=== PATIENT | male | born 1970 | race Caucasian/White ===

== ENCOUNTER 2023-12-05 19:49 | Inpatient (IN) | payer OTHER, SELFPAY ==
[2023-12-05] VITALS (10 sets, daily range): BP systolic 102–123; BP diastolic 70–86
[2023-12-05 19:38] LABS: % Basophils 0.3 % (0-2); % Eosinophils 1.8 % (0-6); % Immature Granulocytes 0.2 % (0-0.5); % Lymphocytes 26.8 % (20.5-51.1); % Monocytes 5.7 % (1.7-9.3); % Neutrophils 65.2 % (42.2-75.2); Absolute Eosinophils 0.2 10^3/uL (0-0.7); Absolute Lymphocytes 3.4 10^3/uL (1.2-3.4); Absolute Monocytes 0.7 10^3/uL (0.1-0.6); Absolute Neutrophils 8.2 10^3/uL (1.4-6.5); Hematocrit 39.2 % (39.0-52.0); Hemoglobin 13.9 g/dL (13.0-18.0); Mean Corp Hgb Conc. 35.5 g/dL (33.0-37.0); Mean Corpuscular Hgb 30.4 pg (27.0-31.0); Mean Corpuscular Volume 85.8 fL (80.0-94.0); Mean Platelet Volume 9.9 fL (7.4-10.4); Nucleated Red Blood Cells % 0 % (-); Platelet Count 314 10^3/uL (130-400); Red Blood Cell Count 4.57 10^6/uL (4.70-6.10); Red Cell Dist. Width 12.6 % (11.5-14.5); White Blood Cell Count 12.6 10^3/uL (4.8-10.8)
--- NOTE | 2023-12-05 19:43 | HPS.HSE ---
Family Physician
-
Family Physician: Stanley Arriola
Chief Complaint
-
Chest Pain.
History of Present Illness
53 y/o male with hyperlipidemia and CAD s/p prior ME in 2019 with PCI now presenting with 30 minutes of substernal chest pain. EKG in the field showed ST elevation ME. On arrival the patient was given nitroglycerin SL with a small drop in BP. IV
fluids were given. The labor relations analyst was activated. At the time of interview, his pain is 8/10. Nitro gtt is being hung. He recalls undergoing the PCI, but is unsure of where the stent was placed.
Medical History
Past Medical History
Past Medical History: Reports CAD (Prior ME and PCI at [facility] - 2019.) and Hypercholesterolemia
Past Surgical History: Reports None
Social History
Tobacco: Non-smoker
Alcohol: Occasional
Drug: None
Family History
Family History: Not pertinent
Allergies / Home Medications
Allergies reflects when Allergies were last updated in [facility] ?.
Home Medications with original date entered in [facility] ?
Allergy/Medication List:
Home Medications:
Atorvastatin.
Metoprolol.
Lisinopril.
Aspirin.
Allergies:
NKDA.
Review of Systems
-
History Source: Patient
A 12 point ROS was completed and negative except as noted: Yes
Cardiac: Reports See HPI and Chest Pain
Physical Exam
Physical Exam
General: Well Developed, Well Nourished, Appears in Distress and Pain
HEENT: NormoCephalic, Anicteric, Moist mucous membranes, Atraumatic, Good Dentition, PERRLA, No Ptosis, Nose Appears Normal and Ears Appear Normal
Respiratory: Clear
Cardiac: S1/S2 and Regular Rhythm
Breast: Deferred by me
GI: Soft, Non Tender, Non Distended and Normal Bowel Sounds
Rectal: Deferred by Provider
Genito-urinary: Deferred by me
Musculoskeletal: No Clubbing, No Cyanosis and No Edema
Skin: Warm and Dry
Neuro: AO x 3, No Motor Deficits and Nonfocal/grossly intact
Hematologic/Lymphatic: No Lymphadenopathy
Psych: Calm and Intact Judgment/Insight
Laboratory Results
-
12/05/23 19:30
Data Reviewed
-
Medical Tests (Nuc Med, Echo, EKG etc): Image Personally Visualized and interpreted and Report Reviewed by me
Lab Data: Labs Reviewed by me
Impression/Plan
-
Impression/Plan: 53 y/o male with HLD and CAD s/p prior PCI for ME in 2019 now presenting with STEMI.
#CAD/STEMI
-Acute.
-Urgent cardiac catheterization for clarification of anatomy with ad hoc PCI.
-Consent is signed and on the chart.
-Further instructions will follow.
Critical Care Time = 30 minutes.
[2023-12-05 19:49] LABS: INR 1.07; PT 13.9 Sec (11.4-14.6)
[2023-12-05 19:50] LABS: ALT (SGPT) 30 U/L (0-50); AST (SGOT) 26 U/L (17-59); Albumin 4.1 g/dl (3.5-5.0); Alkaline Phosphatase 91 U/L (38-126); Blood Urea Nitrogen 21 mg/dl (9-20); Calcium 9.5 mg/dl (8.4-10.2); Carbon Dioxide 29 mmol/L (22-30); Chloride 101 mmol/L (98-107); Glucose 115 mg/dl (70-99); Potassium 3.7 mmol/L (3.5-5.1); Sodium 140 mmol/L (135-145); Total Bilirubin 0.5 mg/dl (0.2-1.3); Total Protein 6.6 g/dl (6.3-8.2); eGFR > 60.00
--- NOTE | 2023-12-05 19:50 | ED.GENMED ---
History of Present Illness
General
Chief Complaint: Cardiac Symptoms
Source: patient and ambulance crew
Exam Limitations: none
Time Seen by Provider: 12/05/23 19:32
Nursing documentation reviewed up to this point in time: agreed with
History of Present Illness
History of Present Illness:
Late entry seen immediately upon presentation
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
is Dr. Hussein at [facility] cardiology
Past History
Past History
ED Past Medical History: CAD, HTN and Hypercholesterolemia
ED Past Surgical History: Cardiac (Stent)
Social History
Tobacco: Non-smoker
Alcohol: None
Drug: None
Personal:
Living: with family
Employment: Employed
Family History
Family History: CAD
Review of Systems
Review of Systems
All Other Systems: Not applicable
Cardiac: Reports chest pain and diaphoresis
Phy Exam
Physical Exam
Physical Exam:
Physical Exam
General: Ill-appearing male
Neck: No joint
Heart: s1/s2 regular rate and rhythm, no murmur. equal radial pulses.
Lungs: no acute respiratory distress. clear bilaterally
Abdomen: Not
Neuro: alert and oriented. no focal neurological deficits
Skin: no rash
Psychiatric: well kept. interactive and cooperative
Extremities: no edema. Strong radial
Scores
Heart Score for Chest Pain Patients
STEMI patient?: Yes
Course
Orders/Labs/Results
Orders:
Orders
12/05/23 19:25
Electrocardiogram (*1) Urgent
Reason for Study: Chest Pain
Cardiac Monitoring- Treatment ONCE
EKG- Treatment ONCE
IV Insert/Care/Rem.- Treatment PRN
O2 Therapy [RESP] Urgent
Titrate/Wean O2 to maintain O2 sat greater than (%): 90
Special Instructions: Maintain sats >/=90%
Pulse Ox/spot Check [RESP] Urgent
Quantity: 1
Special Instructions: ON ROOM AIR
12/05/23 19:30
Complete Blood Count/With Diff Urgent
Comprehensive Metabolic Panel Urgent
PTT Routine
Troponin I Urgent
12/05/23 19:31
PT/INR [Prothrombin Time] Urgent
12/05/23 19:32
Morphine Sulfate 4 mg .ROUTE .STK-MED ONE
12/05/23 19:35
Nitroglycerin 100 mg/250 ml [Nitroglycerin Premix] 100 mg in 250 ml .ROUTE .STK-MED
12/05/23 19:43
Midazolam HCl [Versed] 2 mg .ROUTE .STK-MED ONE
Verapamil Injectable [Isoptin/Verapamil Injection] 5 mg .ROUTE .STK-MED ONE
12/05/23 19:44
Fentanyl Citrate/Pf [Sublimaze] 100 mcg .ROUTE .STK-MED ONE
Heparin 1000 Units/500 ml [Heparin] 1,000 units in 500 ml .ROUTE .STK-MED
Heparin Sodium,Porcine/Ns/Pf [Heparin 2000 Units/1000 ml] 2,000 unit in 1,000 ml .ROUTE .STK-MED
Lidocaine HCl/Pf [Xylocaine-Mpf 1% Vial] 100 mg .ROUTE .STK-MED ONE
Nitroglycerin [Tridil] 1,500 mcg .ROUTE .STK-MED ONE
Abnormal Lab Results
12/05/23
19:30
WBC 12.6 H 10^3/uL
(4.8-10.8)
RBC 4.57 L 10^6/uL
(4.70-6.10)
Absolute Neuts (auto) 8.2 H 10^3/uL
(1.4-6.5)
Absolute Monos (auto) 0.7 H 10^3/uL
(0.1-0.6)
BUN 21 H mg/dl
(9-20)
Glucose 115 H mg/dl
(70-99)
12/05/23 19:30
12/05/23 19:30
MDM/Problems Addressed
Differential Diagnosis Includes:
STEMI, LV aneurysm, pericarditis
MDM/Problems Addressed:
Chest pain
Chronic conditions affecting care: CAD
Acute Exacerbation and/or Progression of Chronic Illness: CAD
*Pulse Oximetry
Patient hypoxic: no
*EKG
Interpreted by ED Provider?: Yes
Interpretation: abnormal
Comparison EKG: no comparison EKG present
Heart Rate: 58
Rate: bradycardiac
Rhythm: sinus
Ischemia: ST elevation
*Printing Estimator Interpretation
Rate: bradycardiac
Interpretation: normal
Heart Rate: 58
Rhythm: sinus
*Critical Care Note
Total Time (30-74mins, 75-104mins- exclusive of procedures): 30
Update Note
Update Note:
CRITICAL CARE STATEMENT: A total of 30 minutes of critical care time was provided for this patient. This includes management of unstable vital signs, evaluation of the patient at bedside, reviewing the patient's pertinent medical records discussion
with EMS providers and patient's family in addition to discussion with consultants, review of old EKGs and review of pertinent medical records. This time with separate from time utilized to perform the aforementioned documented procedures
ED Attending Note
-
Portions of this chart may have been created with voice recognition software.� Occasional wrong word or��sound alike� substitutions may have occurred due to the inherent limitations of voice recognition software.
Discharge Plan
Departure
Patient Disposition: Admit
Date of Disposition: 12/05/23
Time of Disposition: 19:52
Admit to: labor union business representative
Admit to doctor: eric rossi
Presentation/result/management discussed w/ accepting MD/DO: cardilogy ERICA Rose
Patient with high blood pressure during this ER visit?: No
Condition: Serious
Covid-19: Not Applicable
Discharge Problem:
Myocardial infarction acute
Prescriptions:
No Action
atorvastatin 80 mg tablet
80 mg PO DAILY
aspirin 81 mg Tablet,Delayed Release (Dr/Ec)
81 mg PO DAILY
metoprolol succinate 25 mg tablet extended release 24 hr
12.5 mg PO DAILY
lisinopril 2.5 mg tablet
2.5 mg PO DAILY
Referrals:
Stanley Arriola MD [Family Provider] -
[2023-12-05 20:02] LABS: Troponin I < 0.012 ng/ml
[2023-12-05 20:16] LABS: APTT 24.4 Sec (23.4-35.0)
[2023-12-05] MEDS: INTEGRILIN 100 IV (20:18)
[2023-12-05 20:39] LABS: ACT-LR - POC 221 Seconds (116-155)
--- NOTE | 2023-12-05 20:45 | ITS.CL.ANGIO ---
Surgical Instrument Repair Specialist - Angioplasty
Angioplasty
Procedure Report:
CARDIAC CATHETERIZATION REPORT
Date of Procedure: 12/05/2023
Referring: Bowen Umaña D.O.
INDICATION: Anterior ST elevation myocardial infarction.
PROCEDURE:
1. Left heart catheterization
2. Coronary angiography.
3. Success balloon angioplasty of the occluded proximal LAD.
4. Aspiration thrombectomy of embolized thrombus to the distal LAD.
5. Successful PCI of the proximal LAD.
6. Intravascular ultrasound.
ACCESS:
6 [place] right radial artery.
CATHETERS:
1. 5 [place] JR4.
2. 5 [place] JL 3.5.
3. 6 [place] EBU 3.5 guiding catheter.
HEMODYNAMIC DATA
Weight (kg): 77.1.
AO (s/d/x, mmHg): 118/79/92
LV (s/x mmHg): 121/20 (A wave to 35)
LEFT VENTRICULOGRAPHY: Not performed.
CORONARY ANGIOGRAPHY
Dominance: Right.
Left Main: Normal size, bifurcating vessel. There is no coronary artery disease.
LAD: Normal size vessel giving rise to several small diagonals. A stent is present in the mid vessel, spanning the origin of one of the diagonals. The proximal vessel is acutely occluded.
Ramus: Congenitally absent.
Circumflex: Large size, nondominant vessel that is essentially a single large obtuse marginal. There is a 10-20% lesion in the proximal vessel.
RCA: Large size, dominant vessel. There are luminal irregularities in the proximal vessel.
INTERVENTION(S)
1. Successful balloon angioplasty of the acute proximal LAD occlusion (2.0 x 12 semicompliant balloon) with yazidi of RADHA-3 flow and embolization of the culprit thrombus to the distal LAD.
2. Successful aspiration thrombectomy of the distal LAD (KG catheter) with removal of moderate thrombus burden and yazidi of RADHA-3 flow throughout the entire distal LAD.
3. Successful IVUS guided PCI of the proximal and proximal LAD plaque (Xience Skypoint 3.5 x 28 CAIO, postdilated with a 3.5 NC balloon) with reduction in stenosis to 0%, maintaining RADHA-3 flow.
Narrative:
The decision was made to proceed with percutaneous coronary intervention. The diagnostic catheter was removed over a wire and a 6Fr EBU 3.5 guiding catheter was advanced to the aortic root and seated in the left main coronary artery. Additional
heparin was given and a Power Turn Flex wire was advanced into the distal LAD. The acute, thrombotic proximal LAD lesion was predilated with a 2.0 x 12 semi-compliant balloon to 12 emily. Subsequent angiography revealed yazidi of RADHA-3 flow
through the majority the artery but occlusion of the distal vessel consistent with embolization of the thrombus. Eptifibatide was given as a double bolus and drip.
The decision was made to perform aspiration thrombectomy. The semi-compliant balloon was removed. An KG catheter was prepped on the back table and set to negative pressure. With reperfusion, the patient had several runs of nonsustained
ventricular tachycardia, asymptomatic. The patient was bolused with amiodarone 150 mg daily. The KG catheter was advanced over the power turn flex wire and stopcock turned to suction once entering the proximal LAD. The catheter was advanced all
the way into the distal LAD where flow was noted to stop, suggesting that thrombus had been pulled into the catheter. The KG catheter was removed from the body, remaining on negative pressure throughout the entire time. The contents of the
syringe and catheter were flushed through a basket, revealing a moderate sized thrombus. Repeat angiography demonstrated yazidi of RADHA-3 flow into the distal LAD.
We then turned our attention back to the proximal LAD plaque rupture. A Xience Skypoint 3.5 x 28 drug-eluting stent was advanced. Meticulous care was taken while positioning the stent. The distal aspect of the stent was covering the lesion and in
fact overlapped with the previously placed stent. The proximal margin of the stent covered the proximal lesion but did not intrude into the left main coronary artery. The stent was deployed at 12 atmospheres. The stent balloon was removed.
The decision was made to perform intracoronary imaging. An IVUS catheter was advanced through the guiding catheter and into the ostium of the artery. Ring down was performed once the imaging crystal was no longer inside of the guiding catheter. The
IVUS catheter was advanced into the mid LAD, beyond the entire stented segment including the previously placed stent. Intravascular ultrasound was performed in a retrograde fashion using a slow pullback. Intracoronary imaging demonstrated good stent
apposition of the mid LAD stent. This also demonstrated good apposition of the proximal LAD stent in the mid and distal portions with mild mall apposition of the proximal portion and mild underexpansion of the mid and distal stented segments. The
IVUS catheter was withdrawn.
A 3.5 x 20 noncompliant balloon was advanced into the stent and the mid and distal stent was postdilated to 12 atmospheres. The proximal stent was postdilated to 16 emily. Angiography was performed in orthogonal views, confirming good stent
expansion and an excellent angiographic result. The coronary wire was withdrawn and the guide was disengaged from the artery. The catheter was removed over a standard J-wire.
Closure Device: Vascular band.
Radiation (mGy): 523.60
DAP (cm2.Gy): 30.6605
Fluoroscopy time (minutes): 8.5
Sedation time (minutes): 38
CONCLUSIONS
1. Right dominant circulation with luminal irregularities in the proximal RCA, a 10-20% lesion in the proximal circumflex, a prior stent in the mid LAD and an acutely occluded proximal LAD, status post successful balloon angioplasty complicated by
thrombus embolization to the distal LAD requiring aspiration thrombectomy followed by successful IVUS guided PCI of the proximal LAD plaque (Xience Skypoint 3.5 x 28 CAIO, postdilated with a 3.5 NC balloon) with reduction in stenosis to 0%, restoring
RADHA-3 flow.
2. Moderately elevated filling pressures (LVEDP = 20 mmHg at 77.1 kg) with evidence of diastolic dysfunction (A wave to 35 mmHg).
RECOMMENDATIONS:
1. Expectant management after cardiac catheterization via right radial approach.
2. Limited weight bearing on the right wrist for one week.
3. Dual antiplatelet therapy with aspirin and ticagrelor for at least 12 months, followed by aspirin indefinitely. The patient may be on long-term dual antiplatelet therapy.
4. Aggressive secondary prevention and treatment of risk factors.
5. Trend troponin to peak.
6. Echocardiogram ordered and pending.
7. Referral to cardiac rehab.
Copy to: Stanley Arriola M.D.
Eric Rose DO, FACC, FACP
[2023-12-05] MEDS: NSS 1000 IV (21:00)
[2023-12-05 22:16] LABS: Troponin I 0.361 ng/ml
[2023-12-06] VITALS (7 sets, daily range): BP systolic 103–115; BP diastolic 60–82; BMI 23.6
--- NOTE | 2023-12-06 01:05 | PTCARENOTE ---
Received patient from microbiology lab analyst at approx 20:50 into room 2245. Patient AAOx3, sating 95-98% RA, and VSS. Patient denies any chest pain or discomfort. Tele monitor applied--pt SR/sinus jeanna. HR in the 50-70's. At approx 22:35 patient developed a
hematoma proximal to the TR band. Patient was aware of the activity restrictions, and denied putting any pressure on site. Manual pressure held by RN for 10 mins. Site soft upon palpation. TR band removed at 00:15 per protocol, dry dressing
applied. Right radial site remains soft upon palpation, and some ecchymosis noted. Arslan SHAW made aware of hematoma, and assessed site. No new orders obtained. Right radial pulse positive, and denies any numbness at this time. Patient
ambulated w/ standby assist to BR and denies any dizziness. Gait steady. Integrilin infusing at 12.8ml/hr. Patient and aware of POC. Education packets provided. Call cardenas within reach.
[2023-12-06] MEDS: INTEGRILIN 100 IV ×2 (02:02→09:16)
[2023-12-06 04:42] LABS: Hematocrit 35.4 % (39.0-52.0); Hemoglobin 12.5 g/dL (13.0-18.0); Mean Corp Hgb Conc. 35.3 g/dL (33.0-37.0); Mean Corpuscular Hgb 30.1 pg (27.0-31.0); Mean Corpuscular Volume 85.3 fL (80.0-94.0); Mean Platelet Volume 10.3 fL (7.4-10.4); Platelet Count 260 10^3/uL (130-400); Red Blood Cell Count 4.15 10^6/uL (4.70-6.10); Red Cell Dist. Width 12.7 % (11.5-14.5)
[2023-12-06 05:07] LABS: Blood Urea Nitrogen 18 mg/dl (9-20); Carbon Dioxide 25 mmol/L (22-30); Chloride 102 mmol/L (98-107); Estimated Creatinine Clearance 112 ml/min; Glucose 109 mg/dl (70-99); Magnesium 1.9 mg/dl (1.6-2.3); Potassium 3.8 mmol/L (3.5-5.1); Sodium 136 mmol/L (135-145); eGFR > 60.00
--- NOTE | 2023-12-06 07:29 | W.PN.CD ---
Today's Communication / Plan
-
Routine post PCI management.
Trend troponin to peak.
Echocardiogram pending.
Lipid panel pending.
Cardiac Rehab referral.
Impression / Plan
-
Impression/Plan: 53 y/o male with HLD and prior anterior STEMI with PCI to the mLAD (, 2018) admitted with recurrent anterior STEMI s/p IVUS guided PCI to the pLAD.
#CAD/STEMI
-Acute.
-Troponin up to 5.95.
-S/P IVUS guided PCI to the proximal LAD (Xience Skypoint 3.5 x 28 CAIO, post dilated with a 3.5 NCB), overlapping with the mLAD stent.
-Initial angioplasty complicated by thrombus embolizing to the distal LAD, s/p successful aspiration thrombectomy.
-DAPT with ASA and ticagrelor.
-Continue home metoprolol 12.5 mg daily.
-High dose, high potency statin.
-Repeat lipid panel.
-Echocardiogram ordered and pending.
#HLD
-Chronic.
-Lipid panel pending.
-Goal LDL < 55. Probably actually lower.
#PPx
-SCD's for DVT/VTE.
-No role for PPI.
#Dispo
-IVU status.
-Full Code.
Subjective/Interval History:
Anterior STEMI yesterday.
Successful PCI.
Small right radial hematoma overnight.
DATA:
Cardiac Catheterization, 12/05/2023:
CONCLUSIONS
1.� Right dominant circulation with luminal irregularities in the proximal RCA, a 10-20% lesion in the proximal circumflex, a prior stent in the mid LAD and an acutely occluded proximal LAD, status post successful balloon angioplasty complicated by
thrombus embolization to the distal LAD requiring aspiration thrombectomy followed by successful IVUS guided PCI of the proximal LAD plaque (Xience Skypoint 3.5 x 28 CAIO, postdilated with a 3.5 NC balloon) with reduction in stenosis to 0%, restoring
RADHA-3 flow.
2.� Moderately elevated filling pressures (LVEDP = 20 mmHg at 77.1 kg) with evidence of diastolic dysfunction (A wave to 35 mmHg).
Physical Exam
Vital Signs/Labs
Vital Signs
Temp Pulse Resp BP Pulse Ox
36.7 C 58 20 106/66 94
12/06/23 07:06 12/06/23 05:00 12/06/23 07:06 12/06/23 03:57 12/06/23 07:06
12/04/23 12/05/23 12/06/23
11:59 11:59 11:59
Actual Weight 76.8 kg
12/06/23 04:11
12/06/23 04:11
PT 13.9 Sec (11.4-14.6) 12/05/23 19:31
INR 1.07 12/05/23 19:31
APTT 24.4 Sec (23.4-35.0) 12/05/23 19:31
Magnesium 1.9 mg/dl (1.6-2.3) 12/06/23 04:11
LAB Results
12/05/23 12/05/23 12/06/23
19:30 21:45 04:11
Troponin I < 0.012 0.361 H* D 5.950 H* D
Physical Exam
Constitutional: No acute distress and Comfortable
EENT: Anicteric and Moist mucous membranes
Cardiovascular: Rhythm & rate is regular, Pedal edema is absent, JVD pressure is normal, S1S2 is normal and Murmur/rub/gallop absent
Respiratory: Respiratory effort normal, Lungs clear to auscul., Wheeze Absent, Crackles Absent and Rhonchi Absent
GI: Soft, Distention absent, Flat, Non tender and Normal bowel sounds
Neuro/Psych: AO x 3
Other: Cath Site (Right radial access site is C/D/I.)
Data Reviewed
-
Date of Service: December 06, 2023
Medical Decision Making: External Notes, Reviewed Test Results, Tests Ordered, Independent Historian Assessment and Test Interpretation
EKG: Tracing Personally Visualized and interpreted and Report Reviewed by me
Medical Tests (PFT, Pathology etc): Image Personally Visualized and interpreted and Report Reviewed by me
Labs: Labs Reviewed by me and Labs Ordered by me
Old Records: Reviewed
[2023-12-06 08:19] LABS: HDL Cholesterol 34 mg/dl; LDL Cholesterol, Calculated 57 mg/dl; Total Cholesterol 113 mg/dl (50-199); Triglyceride 112 mg/dl (10-149); Very Low Density Lipoprotein 22 mg/dl (0-30)
[2023-12-06] MEDS: LOW STRENGTH ASPIRIN 81 MG PO (09:25)
[2023-12-06] MEDS: TOPROL XL 12.5 MG PO (09:26)
[2023-12-06] MEDS: BRILINTA 90 MG PO ×2 (09:26→19:49)
[2023-12-06] MEDS: LIPITOR 80 MG PO (09:26)
--- NOTE | 2023-12-06 10:42 | CM ---
Chart reviewed. Patient is independent of ADLS, lives with his in a [address], 2 [address], 0 DME. Plan is for the patient to return home. CM to follow
--- NOTE | 2023-12-06 10:43 | CM ---
Pricing on Brilinta through the patient's [employer] prescription plan is $133.86 a month. The patient qualifies for the $5 copay card. Patient's pharmacy does not have Brilinta in stock and it will take 24 hours. Gilma Yang to call in the
prescription. Patient educated on copay card.
[2023-12-06] MEDS: LOVENOX 40 MG SC (18:25)
--- NOTE | 2023-12-06 23:08 | PTCARENOTE ---
patient resting in bed comfortably at this time. denies any cp/sob. educated patient to inform RN with any changes. SR on tele 60s-70s. bp stable. removed dressing from R radial cath site-FUR FINISHER, ecchymotic; + radial pulse. educated patient to inform
RN with any changes.
[2023-12-07] VITALS (8 sets, daily range): BP systolic 108–139; BP diastolic 75–92; BMI 23.1
[2023-12-07 05:03] LABS: Blood Urea Nitrogen 11 mg/dl (9-20); Calcium 9.1 mg/dl (8.4-10.2); Carbon Dioxide 25 mmol/L (22-30); Chloride 107 mmol/L (98-107); Estimated Creatinine Clearance 112 ml/min; Glucose 93 mg/dl (70-99); Potassium 4.3 mmol/L (3.5-5.1); Sodium 136 mmol/L (135-145); eGFR > 60.00
[2023-12-07] MEDS: LOW STRENGTH ASPIRIN 81 MG PO (08:40)
[2023-12-07] MEDS: BRILINTA 90 MG PO ×2 (08:40→19:45)
[2023-12-07] MEDS: LIPITOR 80 MG PO (08:40)
[2023-12-07] MEDS: TOPROL XL 12.5 MG PO ×2 (08:40→09:25)
--- NOTE | 2023-12-07 09:08 | W.PN.CD ---
Today's Communication / Plan
-
monitor tele
change atorvastatin to rosuvastatin
change lisinopril to entresto
increase ToproL XL to 25mg daily
continue DAPT
Impression / Plan
-
Impression/Plan: 53 y/o male with HLD and prior anterior STEMI with PCI to the mLAD (2018) admitted with recurrent anterior STEMI s/p IVUS guided PCI to the pLAD.
#CAD/STEMI
-Acute.
-Troponin peak 7
-s/p IVUS guided PCI to the proximal LAD (Xience Skypoint 3.5 x 28 CAIO, post dilated with a 3.5 NCB), overlapping with the mLAD stent. on 12/04
-Initial angioplasty complicated by thrombus embolizing to the distal LAD, s/p successful aspiration thrombectomy.
-DAPT with ASA and ticagrelor.
# ICM EF 40-45%
-increase Toprol XL to 25mg daily
-change lisinopril to entresto 24/26mg bid
#HLD
-LDL 57
-Goal LDL < 55. Change atorvastatin to rosuvastatin 40mg daily
# NSVT
-brief on day one post OR
-increase Toprol XL to 25mg daily, limited by HR
-monitor tele one more day
# Mild AR
-outpatient f/u
Subjective/Interval History:
No more chest pain.
DATA:
Cardiac Catheterization, 12/05/2023:
CONCLUSIONS
1.� Right dominant circulation with luminal irregularities in the proximal RCA, a 10-20% lesion in the proximal circumflex, a prior stent in the mid LAD and an acutely occluded proximal LAD, status post successful balloon angioplasty complicated by
thrombus embolization to the distal LAD requiring aspiration thrombectomy followed by successful IVUS guided PCI of the proximal LAD plaque (Xience Skypoint 3.5 x 28 CAIO, postdilated with a 3.5 NC balloon) with reduction in stenosis to 0%, restoring
RADHA-3 flow.
2.� Moderately elevated filling pressures (LVEDP = 20 mmHg at 77.1 kg) with evidence of diastolic dysfunction (A wave to 35 mmHg).
Physical Exam
Vital Signs/Labs
Vital Signs
Temp Pulse Resp BP Pulse Ox
97.9 F 64 18 124/92 94
12/07/23 06:51 12/07/23 07:00 12/07/23 06:51 12/07/23 06:53 12/07/23 08:46
12/06/23 12/07/23 12/08/23
06:59 06:59 06:59
Actual Weight 76.8 kg 75.2 kg
12/06/23 04:11
12/07/23 04:34
PT 13.9 Sec (11.4-14.6) 12/05/23 19:31
INR 1.07 12/05/23 19:31
APTT 24.4 Sec (23.4-35.0) 12/05/23 19:31
Magnesium 1.9 mg/dl (1.6-2.3) 12/06/23 04:11
Triglycerides 112 mg/dl (10-149) 12/06/23 04:11
LDL Cholesterol, Calc 57 mg/dl 12/06/23 04:11
VLDL Cholesterol, Calc 22 mg/dl (0-30) 12/06/23 04:11
HDL Cholesterol 34 mg/dl 12/06/23 04:11
LAB Results
12/05/23 12/05/23 12/06/23
19:30 21:45 04:11
Troponin I < 0.012 0.361 H* D 5.950 H* D
12/06/23 12/06/23 12/07/23
09:35 16:13 04:34
Troponin I 7.090 H* 5.290 H* D 3.070 H*
Physical Exam
Constitutional: No acute distress and Comfortable
EENT: Moist mucous membranes
Cardiovascular: Rhythm & rate is regular, Pedal edema is absent, JVD pressure is normal and Systolic murmur absent
Respiratory: Respiratory effort normal, Lungs clear to auscul. and Wheeze Absent
GI: Soft, Distention absent and Flat
Neuro/Psych: AO x 3
Data Reviewed
-
Date of Service: December 07, 2023
EKG: Other (Tele: brief NSVT yesterday)
Echo: Report Reviewed by me (EF 40-45%, mild AR)
Labs: Labs Reviewed by me
[2023-12-07] MEDS: ENTRESTO 24 MG/26 MG 1 TAB PO ×2 (09:25→19:45)
--- NOTE | 2023-12-07 10:22 | CM ---
Pricing on Entresto through the patient's prescription plan is $7.20 a month. I did place a co pay card in the patient's red discharge folder in case there was a misquote.
--- NOTE | 2023-12-07 15:06 | CM ---
dc plan remains home when medically stable.
[2023-12-07] MEDS: LOVENOX 40 MG SC (18:25)
--- NOTE | 2023-12-07 19:11 | PTCARENOTE ---
Pt denied any discomfort, up walking in halls. New entresto given today, first dose tolerated. Telemetry shows sinus rhythm, no ectopy noted.
--- NOTE | 2023-12-07 19:58 | PTCARENOTE ---
Pt ambulating the halls with his . AAOx3- SR on the monitor. 60s to 70s.
[2023-12-08 04:42] VITALS: BP 112/72
[2023-12-08 05:29] LABS: % Basophils 0.4 % (0-2); % Eosinophils 2.6 % (0-6); % Immature Granulocytes 0.4 % (0-0.5); % Lymphocytes 24.5 % (20.5-51.1); % Monocytes 5.9 % (1.7-9.3); % Neutrophils 66.2 % (42.2-75.2); Absolute Basophils 0.1 10^3/uL (0-0.2); Absolute Eosinophils 0.3 10^3/uL (0-0.7); Absolute Lymphocytes 2.7 10^3/uL (1.2-3.4); Absolute Monocytes 0.7 10^3/uL (0.1-0.6); Absolute Neutrophils 7.4 10^3/uL (1.4-6.5); Hematocrit 42.6 % (39.0-52.0); Mean Corp Hgb Conc. 35.2 g/dL (33.0-37.0); Mean Corpuscular Hgb 29.9 pg (27.0-31.0); Mean Corpuscular Volume 84.9 fL (80.0-94.0); Mean Platelet Volume 10.1 fL (7.4-10.4); Nucleated Red Blood Cells % 0 % (-); Platelet Count 288 10^3/uL (130-400); Red Blood Cell Count 5.02 10^6/uL (4.70-6.10); Red Cell Dist. Width 12.7 % (11.5-14.5); White Blood Cell Count 11.2 10^3/uL (4.8-10.8)
[2023-12-08 05:44] LABS: Blood Urea Nitrogen 15 mg/dl (9-20); Calcium 9.3 mg/dl (8.4-10.2); Carbon Dioxide 24 mmol/L (22-30); Chloride 106 mmol/L (98-107); Estimated Creatinine Clearance 112 ml/min; Glucose 92 mg/dl (70-99); Potassium 4.4 mmol/L (3.5-5.1); Sodium 135 mmol/L (135-145); eGFR > 60.00
[2023-12-08 07:42] VITALS: BP 120/75
--- NOTE | 2023-12-08 08:51 | W.PN.UPDATE ---
Update Note
Progress Note Update
Mr. Haines is feeling well, denies any cardiac complaints. Right radial site is well healed, vitals, labs and tele stable. Stable for d/c home today with follow up as arranged. We reviewed discharge meds and instructions, he verbalized
understanding.
--- NOTE | 2023-12-08 08:53 | W.DS.TRANS ---
DC Summary - Weight Training Instructor
-
Discharge Instructions:
Discharge Diagnosis/Procedures STEMI, Thrombectomy with angioplasty and stent
to Left Anterior Descending artery
Diet Low Cholesterol
Driving Restrictions No driving for 24 hours
Other Services Cardiac Rehab
Instructions:
Stand-Alone Forms: DC Instructions- Cath/EP Lab
Changes to Home Medications: Yes
Discharge Medications:
DC Medications w/original date entered in [facility]
aspirin 81 mg tablet,delayed release 81 mg PO DAILY Blood Clot Prevention/CAD 12/05/23
ticagrelor 90 mg tablet (Brilinta) 90 mg PO BID #60 tabs 12/06/23
metoprolol succinate 25 mg tablet,extended release 24 hr 25 mg PO DAILY #90 tabs 12/07/23
nitroglycerin 0.4 mg sublingual tablet 0.4 mg sublingual [id number] PRN chest pain #25 tabs 12/07/23
rosuvastatin 40 mg tablet 40 mg PO QPM #90 tabs 12/07/23
sacubitril 24 mg-valsartan 26 mg tablet (Entresto) 1 tab PO BID #180 tabs 12/07/23
Home Medication Changes
Brilinta, Crestor and Entresto are new.
Toprol increased to 25mg daily.
Pending Results: No
[2023-12-08] MEDS: LOW STRENGTH ASPIRIN 81 MG PO (09:04)
[2023-12-08] MEDS: BRILINTA 90 MG PO (09:04)
[2023-12-08] MEDS: TOPROL XL 25 MG PO (09:05)
[2023-12-08] MEDS: ENTRESTO 24 MG/26 MG 1 TAB PO (09:05)
--- NOTE | 2023-12-08 10:32 | PTCARENOTE ---
Pt seen by and Joellen Bañuelos, ERNESTINE. Telemetry and IV device removed. Discharge instructions reviewed with pt and his regarding activity guidelines, medications and their possible side effects, wound care, reporting cares and concerns
and follow up appointments and blood tests. Very good understanding verbalized. Pt escorted out via wheelchair and discharged to home.
[2023-12-10 09:00] LABS: ACT-LR - POC 284 Seconds (116-155)
== END 2023-12-08 10:35 | disposition home or self-care (01) | DRG 322 ==
LOC: IVU 19:49
PROVIDERS: Internal Medicine; Nurse Practitioner Adult Health; ADMITTING PHYSICIAN Internal Medicine Cardiovascular Disease; EMERGENCY PHYSICIAN Emergency Medicine; FAMILY PHYSICIAN Family Medicine
PROC: B2111ZZ Fluoroscopy of Multiple Coronary Arteries using Low Osmolar Contrast (ICD-10-PCS; 2023-12-05)
PROC: 4A023N7 Measurement of Cardiac Sampling and Pressure, Left Heart, Percutaneous Approach (ICD-10-PCS; 2023-12-05)
PROC: 027034Z Dilation of Coronary Artery, One Artery with Drug-eluting Intraluminal Device, Percutaneous Approach (ICD-10-PCS; 2023-12-05)
PROC: 02C03ZZ Extirpation of Matter from Coronary Artery, One Artery, Percutaneous Approach (ICD-10-PCS; 2023-12-05)
DX: I21.09 ST elevation (STEMI) myocardial infarction involving other coronary artery of anterior wall (principal); I47.20 Ventricular tachycardia, unspecified; I97.630 Postprocedural hematoma of a circulatory system organ or structure following a cardiac catheterization; I25.10 Atherosclerotic heart disease of native coronary artery without angina pectoris; I25.2 Old myocardial infarction; E78.00 Pure hypercholesterolemia, unspecified
CPT/HCPCS: 80048; 80053; 80061; 83036; 83735; 84484; 85025; 85027; 85347; 85610; 85730; 92978; 93005; 93306; 93458; 99291; C1725; C1753; C1757; C1769; C1874; C1894; C9600; J1327; Q9967

== ENCOUNTER 2023-12-28 13:19 | Outpatient (RCR) | payer OTHER, SELFPAY | END 2023-12-28 23:59 | disposition home or self-care (01) | LOC: CRHB 13:19 | PROVIDERS: ATTENDING PHYSICIAN Internal Medicine Cardiovascular Disease | DX: I21.01 ST elevation (STEMI) myocardial infarction involving left main coronary artery (principal); Z95.5 Presence of coronary angioplasty implant and graft; I25.10 Atherosclerotic heart disease of native coronary artery without angina pectoris | CPT/HCPCS: 93797; 93798 ==

== ENCOUNTER 2024-01-28 13:39 | Outpatient (RCR) | payer OTHER, SELFPAY | END 2024-01-28 23:59 | disposition home or self-care (01) | LOC: CRHB 13:39 | PROVIDERS: ATTENDING PHYSICIAN Internal Medicine Cardiovascular Disease | DX: I21.01 ST elevation (STEMI) myocardial infarction involving left main coronary artery (principal); Z95.5 Presence of coronary angioplasty implant and graft; I25.10 Atherosclerotic heart disease of native coronary artery without angina pectoris | CPT/HCPCS: 93797; 93798 ==

== ENCOUNTER 2024-02-06 16:43 | Outpatient (RCR) | payer OTHER, SELFPAY | END 2024-02-06 23:59 | disposition home or self-care (01) | LOC: CRHB 16:43 | PROVIDERS: ATTENDING PHYSICIAN Internal Medicine Cardiovascular Disease; FAMILY PHYSICIAN Family Medicine | DX: Z95.5 Presence of coronary angioplasty implant and graft (principal); I21.01 ST elevation (STEMI) myocardial infarction involving left main coronary artery; I25.10 Atherosclerotic heart disease of native coronary artery without angina pectoris | CPT/HCPCS: 93797; 93798 ==

== ENCOUNTER → 2024-03-13 12:48 | Outpatient (REF) | payer OTHER, SELFPAY | LOC: RCS 12:48 | PROVIDERS: ATTENDING PHYSICIAN Nurse Practitioner; FAMILY PHYSICIAN Family Medicine | DX: I25.5 Ischemic cardiomyopathy (principal) | CPT/HCPCS: 93308; 93321; 93325 ==

== ENCOUNTER → 2025-01-15 14:11 | Outpatient (REF) | payer OTHER, SELFPAY | LOC: HWRAD 14:11 | PROVIDERS: ATTENDING PHYSICIAN Chiropractor; FAMILY PHYSICIAN Internal Medicine | DX: M54.2 Cervicalgia (principal) | CPT/HCPCS: 72050 ==

== ENCOUNTER 2025-06-20 18:58 | Emergency (ER) | payer OTHER, SELFPAY ==
[2025-06-20 19:01] VITALS: BP 127/76
[2025-06-20 19:22] LABS: Hematocrit 40.9 % (39.0-52.0); Hemoglobin 13.9 g/dL (13.0-18.0); Mean Corp Hgb Conc. 34.0 g/dL (33.0-37.0); Mean Corpuscular Volume 91.3 fL (80.0-94.0); Nucleated Red Blood Cells % 0 % (-); Platelet Count 222 10^3/uL (130-400); Red Cell Dist. Width 13.1 % (11.5-14.5)
[2025-06-20 19:35] LABS: ALT (SGPT) 106 U/L (0-50); AST (SGOT) 47 U/L (17-59); Albumin 4.4 g/dl (3.5-5.0); Alkaline Phosphatase 43 U/L (38-126); Blood Urea Nitrogen 21 mg/dl (9-20); Calcium 9.2 mg/dl (8.4-10.2); Carbon Dioxide 30 mmol/L (22-30); Chloride 103 mmol/L (98-107); Glucose 97 mg/dl (70-99); Potassium 4.5 mmol/L (3.5-5.1); Sodium 138 mmol/L (135-145); Total Protein 6.9 g/dl (6.3-8.2); eGFR > 60.00
[2025-06-20 19:45] VITALS: BP 115/83; BMI 21.5
[2025-06-20 19:47] LABS: Troponin I < 0.012 ng/ml
[2025-06-20 20:00] VITALS: BP 111/84
--- NOTE | 2025-06-20 20:17 | ED.GENMED ---
History of Present Illness
General
Chief Complaint: Chest Pain
Source: patient
Time Seen by Provider: 06/20/25 19:53
History of Present Illness
History of Present Illness:
55-year-old male with past medical history of hypertension, hyperlipidemia, previous [place] x 2 status post coronary stenting presents to the emergency department for evaluation of chest pain that started around 5:15 PM described to be initially
right-sided and very sharp, fleeting but then shortly thereafter developed generalized chest discomfort which lasted approximately 30 minutes and then has since been resolved. Patient follows with Dr. Roe, called the office and was recommended
to come to the ER for further evaluation given his past medical history. Patient states there were no other symptoms associated. He notes that earlier today he was at a [employer] and had no symptoms at that time. He denies any
fevers although does note his is currently dealing with a mild URI at home. No recent travel. Denies any pain or swelling in his lower extremities. No other concerns presently. Patient does report good compliance with all medications.
Past History
Past History
ED Past Medical History: CAD, HTN, Hypercholesterolemia and [place]
ED Past Surgical History: Cardiac (Stent)
Social History
Tobacco: Non-smoker
Alcohol: None
Drug: None
Personal:
Living: with family
Employment: Employed
Family History
Family History: CAD
Review of Systems
Review of Systems
All Other Systems: ROS reviewed and negative except as documented in HPI and ROS
Phy Exam
Physical Exam
Physical Exam:
GENERAL: Alert , in no apparent distress
HEAD: Normocephalic atraumatic
EYE: conjunctiva clear
NECK: Supple, no significant adenopathy.
ENT: o/p clr, mmm.
CARDIAC: Regular rate and rhythm
LUNGS: Clear breath sounds bilaterally, no acute respiratory distress, no wheezes/rales/rhonchi
NEUROLOGICAL: Alert and oriented
SKIN: Warm and dry, skin intact.
MUSCULOSKELETAL: well perfused.
PSYCH: Normal and appropriate interaction.
Scores
Heart Failure Risk
Heart Failure Risk Score: Not Applicable
Heart Score for Chest Pain Patients
STEMI patient?: No
History: Moderately Suspicious
ECG: Normal
Age: >45 - <65 years
Risk Factors: >/= 3 Risk Factors or History of CAD
Troponin: </= Normal Limit
Heart Score for Chest Pain Patients: 4
Heart Score Risk: 20.3% MACE over next 6 weeks
Withdrawal Assessment of Alcohol
Withdrawal Assessment Completed?: Not applicable
Course
Orders/Labs/Results
Orders:
Orders
06/20/25 18:59
Electrocardiogram (*1) Urgent
Reason for Study: Chest Pain
06/20/25 19:00
EKG- Treatment ONCE
06/20/25 19:09
Complete Blood Count/With Diff Urgent
Comprehensive Metabolic Panel Urgent
Troponin I Urgent
06/20/25 19:59
CR Chest - 2 Views Urgent
Comment:
Reason For Exam: chest pain
06/20/25 21:44
Troponin I Urgent
Abnormal Lab Results
06/20/25
19:09
RBC 4.48 L 10^6/uL
(4.70-6.10)
Absolute Neuts (auto) 6.7 H 10^3/uL
(1.4-6.5)
Lymphocytes % 18.1 L %
(20.5-51.1)
BUN 21 H mg/dl
(9-20)
ALT 106 H U/L
(0-50)
06/20/25 19:09
06/20/25 19:09
Vital Signs
Initial and Last Documented VS:
Initial Vital Signs
Temp Pulse Resp BP Pulse Ox
98.5 F 82 16 127/76 98
06/20/25 19:01 06/20/25 19:01 06/20/25 19:01 06/20/25 19:01 06/20/25 19:01
Last Documented Vital Signs
Temp Pulse Resp BP Pulse Ox
98.5 F 57 17 115/80 96
06/20/25 19:01 06/20/25 22:45 06/20/25 22:45 06/20/25 22:00 06/20/25 22:45
MDM/Problems Addressed
Differential Diagnosis Includes:
Angina
ACS
Musculoskeletal chest wall pain
PE
Dissection
Pericarditis/myocarditis
Infectious etiology such as pneumonia
MDM/Problems Addressed:
55-year-old male presenting to the emergency department for evaluation of chest discomfort which started around 515, resolved after about a half an hour. Patient notes no other symptoms other than the chest discomfort. He states it did not feel
exactly similar to when he had previous MIs. Patient states his biggest concern was that it did radiate towards his jaw and made him feel as if you are having a sore throat. Patient readily compliant with all of his medications. Workup initiated
on arrival shows a nonischemic EKG and negative troponin. Will add chest x-ray and repeat troponin. Patient continues to be chest pain-free. As long as remaining workup is unremarkable anticipate follow-up with chest pain hotline. Patient
agreeable with this plan.
Chronic conditions affecting care: CAD
Acute Exacerbation and/or Progression of Chronic Illness: CAD
*Radiology
Radiology exam reviewed: preliminary read by ED provider (Normal chest x-ray)
*Pulse Oximetry
SaO2: 99
Oxygen Mode of Delivery: Room air
Patient hypoxic: no
*EKG
Heart Rate: 66
Rate: normal
Rhythm: sinus
[place]: normal axis
Ischemia: no ischemia
*Adjunct Instructor Of Women'S Studies Interpretation
Rate: normal
Heart Rate: 68
Rhythm: sinus
*Critical Care Note
Total Time (30-74mins, 75-104mins- exclusive of procedures): Not Applicable
Data Reviewed
Review of Other/Old Records Reveals: Labs, Records and Discharge Summary
Patient Management
Escalation/DeEscalation of care consider admission/obs:
Patient's chest x-ray unremarkable, repeat troponin negative. He remains chest pain-free. Patient feels comfortable being discharged home. Will notify the chest pain hotline. Patient aware of return precautions to the ER.
ED Attending Note
-
Portions of this chart may have been created with voice recognition software.� Occasional wrong word or��sound alike� substitutions may have occurred due to the inherent limitations of voice recognition software.
Discharge Plan
Departure
Patient Disposition: Home (Routine Discharge)
Date of Disposition: 06/20/25
Time of Disposition: 22:38
Patient with high blood pressure during this ER visit?: No
Discharge Problem:
Chest pain
Instructions: Chest Pain CBC Follow Up
Prescriptions:
No Action
aspirin 81 mg Tablet,Delayed Release (Dr/Ec)
81 mg PO DAILY
ticagrelor [Brilinta] 90 mg Tablet
90 mg PO BID Qty: 60 11RF
nitroglycerin [nitroglycerin] 0.4 mg tablet, sublingual
0.4 mg sublingual [id number] PRN (Reason: chest pain) Qty: 25 2RF
metoprolol succinate 25 mg Tablet Extended Release 24 Hr
25 mg PO DAILY Qty: 90 3RF
rosuvastatin 40 mg Tablet
40 mg PO QPM Qty: 90 3RF
sacubitril-valsartan [Entresto] 24-26 mg Tablet
1 tab PO BID Qty: 180 3RF
ezetimibe [Zetia] 10 mg Tablet
10 mg PO DAILY
Referrals:
Carlos Eduardo Williamson MD [Family Provider, Family Practice]
Interventions
Interventions:
*Risk Screen - Suicide Last Done: 06/20/25 19:01
*General Assessment Last Done: 06/20/25 19:01
*Neglect/Abuse Screening Last Done: 06/20/25 19:01
*ED- Fall Risk Assessment Last Done: 06/20/25 19:01
*ED COVID-19 Vaccine History Last Done: 06/20/25 19:01
*Nursing Disposition Last Done: 06/20/25 22:56
ED- Cardiac Assessment Last Done: 06/20/25 19:48
Discharge Date and Time
Discharge Date/Time: 06/20/25 22:56
Print Language: [id number]
[2025-06-20 21:00] VITALS: BP 118/80
[2025-06-20 22:00] VITALS: BP 115/80
[2025-06-20 22:23] LABS: Troponin I < 0.012 ng/ml
== END 2025-06-20 22:56 | disposition home or self-care (01) ==
LOC: EMR 18:58
PROVIDERS: Physician Assistant Medical; EMERGENCY PHYSICIAN Emergency Medicine; FAMILY PHYSICIAN Family Medicine
DX: R07.89 Other chest pain (principal); I10 Essential (primary) hypertension; E78.00 Pure hypercholesterolemia, unspecified; I25.10 Atherosclerotic heart disease of native coronary artery without angina pectoris; I25.2 Old myocardial infarction; Z82.49 Family history of ischemic heart disease and other diseases of the circulatory system; Z95.5 Presence of coronary angioplasty implant and graft
CPT/HCPCS: 99283; 71046; 80053; 84484; 85025; 93005